=== PATIENT | female | born 2000 | race Caucasian/White ===

== ENCOUNTER 2020-06-21 11:07 | Emergency (ER) | payer MEDICAID ==
[~2020-06-21] VITALS: Ht 152.4 cm; Wt 54.4 kg
[2020-06-21] MEDS ORDERED: AUGMENTIN 875-1 EACH PO (12:47)
[2020-06-21 12:57] VITALS: BP 125/76
== END 2020-06-21 12:57 | disposition home or self-care (01) ==
LOC: M.ERS 11:07
DX: R51.9 Headache, unspecified (principal); R09.3 Abnormal sputum; H57.89 Other specified disorders of eye and adnexa

== ENCOUNTER 2020-09-10 17:37 | Emergency (ER) | payer MEDICAID ==
[~2020-09-10] VITALS: Ht 152.4 cm; Wt 54.0 kg
[~2020-09-10 17:37] MED LIST: AUGMENTIN 875-1 EACH PO
[2020-09-10] MEDS ORDERED: TRINATE TABLET1 EACH PO (18:19)
[2020-09-10 18:27] VITALS: BP 122/82
== END 2020-09-10 18:29 | disposition home or self-care (01) ==
LOC: M.ERS 17:37
DX: Z32.01 Encounter for pregnancy test, result positive (principal); R10.2 Pelvic and perineal pain

== ENCOUNTER 2021-03-10 16:11 | Emergency (ER) | payer MEDICAID ==
[~2021-03-10] VITALS: Ht 152.4 cm; Wt 66.7 kg
[~2021-03-10 16:11] MED LIST changes: +TRINATE TABLET1 EACH PO
[2021-03-10 17:02] LABS: ABSOLUTE EOSINOPHILS 0.1 thou/uL (0.0-0.7); ABSOLUTE LYMPHOCYTES 1.6 thou/uL (0.8-5.3); ABSOLUTE MONOCYTES 0.7 thou/uL (0.0-1.2); ABSOLUTE NEUTROPHILS 5.4 thou/uL (1.6-8.1); BASOPHILS 0.4 %; EOSINOPHILS 1.4 %; HEMATOCRIT 26.1 % (37.0-47.0); HEMOGLOBIN 9.1 gm/dL (12.0-15.0); LYMPHOCYTES 19.9 %; MCH 30.4 pg (26.0-34.0); MCV 86.8 fL (80.0-100.0); MONOCYTES 9.1 %; MPV 9.4 fl. (7.2-11.1); NUCLEATED RBCS 0 /100WBC; PLATELET COUNT* 200 thou/uL (150-400); POLYS 69.2 %; RBC 3.01 mil/uL (4.20-5.00); RDW-CV 13.4 % (10.5-14.5); WBC 7.9 thou/uL (4.0-11.0)
[2021-03-10 17:11] LABS: CREATININE 0.7 mg/dL (0.6-1.3); POTASSIUM 3.5 mmol/L (3.5-5.1)
[2021-03-10 17:15] LABS: ALBUMIN 2.7 g/dL (3.4-5.0); TOTAL BILIRUBIN 0.3 mg/dL (<0.1-1.0); TOTAL PROTEIN 6.4 g/dL (6.4-8.2)
[2021-03-10 17:22] VITALS: BP 117/76
== END 2021-03-10 17:25 | disposition left against medical advice (07) ==
LOC: M.ERS 16:11
PROVIDERS: Nurse Practitioner Family
DX: O36.8130 Decreased fetal movements, third trimester, not applicable or unspecified (principal); O21.8 Other vomiting complicating pregnancy; O46.93 Antepartum hemorrhage, unspecified, third trimester; Z3A.30 30 weeks gestation of pregnancy